=== PATIENT | female | born 1995 ===

== ENCOUNTER 2017-12-04 03:17 | Emergency (ER) | payer SELFPAY ==
[2017-12-04 03:41] VITALS: TEMP 98.3
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
[2017-12-04 07:01] VITALS: BP 114/62; PULSE 80; RESP 14; O2SAT 100
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
== END 2017-12-04 07:01 | disposition home or self-care (01) ==
LOC: C.ER 03:17
DX: S01.01XA Laceration without foreign body of scalp, initial encounter (principal); Y04.0XXA Assault by unarmed brawl or fight, initial encounter; Y92.89 Other specified places as the place of occurrence of the external cause

== ENCOUNTER 2017-12-13 19:54 | Emergency (ER) | payer SELFPAY ==
[2017-12-13 20:01] VITALS: BP 117/66; PULSE 82; RESP 20; TEMP 98.2; O2SAT 99
--- NOTE | 2017-12-13 20:48 | C.PDOC ---
History Of Present Illness 22 year old female presents to the ED for staple removal. Patient was seen here on 12/04 and had 3 melissa placed to the left scalp. She otherwise denies any headache, fever, chills, or redness/discharge at the site. Time Seen by Provider: 12/13/17 20:03 Chief Complaint (Nursing): Abnormal Skin Integrity History Per: Patient History/Exam Limitations: no limitations Onset/Duration Of Symptoms: Days Current Symptoms Are (Timing): Still Present Past Medical History Reviewed: Historical Data, Nursing Documentation, Vital Signs Vital Signs: Last Vital Signs Temp 98.2 F 12/13/17 19:57 Pulse 82 12/13/17 19:57 Resp 20 12/13/17 19:57 BP 117/66 12/13/17 19:57 Pulse Ox 99 12/13/17 20:50 - Medical History PMH: No Chronic Diseases Surgical History: No Surg Hx Family History: States: Unknown Family Hx - Social History Hx Alcohol Use: No Hx Substance Use: No - Immunization History Hx Tetanus Toxoid Vaccination: No Hx Influenza Vaccination: No Hx Pneumococcal Vaccination: No Review Of Systems Constitutional: Negative for: Fever, Chills Skin: Positive for: Lesions (healing laceration to scalp). Negative for: Rash Neurological: Negative for: Headache Physical Exam - Physical Exam Appears: Non-toxic, No Acute Distress Skin: Normal Color, Warm, No Rash Head: Normacephalic, Other (Well-healed wound to left parietal scalp, melissa intact, no surrounding erythema or edema) Eye(s): bilateral: PERRL, EOMI Extremity: Bilateral: Atraumatic, Normal Color And Temperature Neurological/Psych: Oriented x3, Normal Speech Gait: Steady ED Course And Treatment O2 Sat by Pulse Oximetry: 99 (RA) Pulse Ox Interpretation: Normal Medical Decision Making Medical Decision Making: Impression: Visit for staple removal Plan: 3 melissa were removed by me without difficulty. Patient tolerated procedure well. Counseled patient regarding wound care instructions. Advised to follow up with primary doctor as needed. Disposition Counseled Patient/Family Regarding: Diagnosis, Need For Followup - Disposition Disposition: HOME/ ROUTINE Disposition Time: 20:48 Condition: GOOD Additional Instructions: Limpie el mahad de la herida suavemente. Las costras caern pronto.Clean wound area gently. Scabs will fall off soon. 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 - Scribe Statement The provider has reviewed the documentation as recorded by the Scribe (Mago Mcneill) All medical record entries made by the Scribe were at my direction and personally dictated by me. I have reviewed the chart and agree that the record accurately reflects my personal performance of the history, physical exam, medical decision making, and the department course for this patient. I have also personally directed, reviewed, and agree with the discharge instructions and disposition.
== END 2017-12-13 20:57 | disposition home or self-care (01) ==
LOC: C.ER 19:54
DX: Z48.02 Encounter for removal of sutures (principal)